=== PATIENT | male | born 1955 | race Caucasian/White ===

== ENCOUNTER 2022-02-28 11:15 | Emergency (ER) | payer MEDICARE, OTHER, SELFPAY ==
--- NOTE | 2022-02-28 13:17 | ED.URI ---
HPI - URI/Sore Throat General Chief Complaint: Chest Pain Stated Complaint: Chest Pain,SOB Time Seen by Provider: 02/28/22 13:17 Source: patient Mode of arrival: ambulatory Limitations: no limitations History of Present Illness HPI Narrative: 66-year-old male with no significant medical history presents with complaint of chest pain, shortness of breath that started around 1:00 a.m.. States that it woke him up from sleeping. Thought that it was heartburn took 2 Tylenol and went back to sleep. Denies nausea vomiting. No sweating , dizziness, fatigue. Feels short of breath while lying on stretcher in exam room. Pain is not reproducible with palpation. 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 States this is the hardest I have worked in years . All systems reviewed and negative except as noted above. Related Data Home Medications Medication Instructions Recorded Confirmed No Home Medications 02/28/22 02/28/22 Allergies Allergy/AdvReac Type Severity Reaction Status Date / Time No Known Allergies Allergy Unverified 02/28/22 13:11 Review of Systems Review of Systems: CONSTITUTIONAL: Denies fever, chills, or sweats. EYES: Denies visual changes, redness, or discharge. ENT: Denies rhinorrhea, congestion, sore throat, or otalgia. CARDIOVASCULAR: Reports chest pain and shortness of breath. RESPIRATORY: Denies cough or dyspnea. GASTROINTESTINAL: Denies abdominal pain, nausea, vomiting, or diarrhea. GENITOURINARY: Denies dysuria or hematuria. SKIN: Denies rash or itching. MUSCULOSKELETAL: Denies back pain, joint pain, or myalgia. NEUROLOGIC: Denies headache, numbness, or weakness. PSYCHIATRIC: Denies anxiety or depression. All other systems reviewed are negative, except as documented in HPI. PMFSH Comments At time of signature, agree with nursing past medical, surgical, social and family history. There is no relevant family history pertinent to the presenting complaint. Exam Narrative: GENERAL: This is a well-nourished, well-developed patient, in no apparent distress. HEAD: normocephalic, atraumatic. EYES: PERRL. Sclera clear/white. Vision is grossly intact. EARS: External ears normal NOSE: External nose normal NECK: Neck supple, non-tender without lymphadenopathy, masses or thyromegaly. CARDIOVASCULAR: irregular RESPIRATORY: Clear to auscultation. Breath sounds equal bilaterally. No wheezes, rales, or rhonchi. SKIN: warm, Dry, intact with no suspicious lesions or rash, good texture and turgor. NEURO: awake, alert, and oriented to person, place and time. There were no obvious focal neurologic abnormalities. EXTREMITIES: No joint tenderness, effusion, or edema noted. Course Course Level of Care: Express Care Visit Vital Signs Vital signs: reviewed Transfer Transfered to: [place] Transportation: [facility] Transfer rationale: new onset atrial fibrillation Accepting physician: Dr. Rossi MDM - URI/Sore Throat MDM Narrative Medical decision making narrative: EKG atrial fibrillation. No history for patient. Transfer to ER via ambulance. Vital signs stable. Complaint of chest pain and shortness of breath. No dizziness , nausea or diaphoresis. Patient is aware of diagnosis, understands and agrees to treatment plan. Anticipatory guidance given. Patient agrees to follow-up as directed and is aware of reasons to seek care at the emergency department. Portions of this record may have been created with voice recognition software Discharge Plan Discharge Clinical Impression: Atrial fibrillation Patient Disposition: Acute Care Hospital Condition: Stable Additional Instructions: go directly to [facility]. Prescriptions: No Action No Home Medications Follow-up/Referrals: Jennifer,Jurgen Patel MD [Primary Care Provider] - Time of Disposition: 13:30
--- NOTE | 2022-02-28 13:46 | PC.NURSE ---
1325-- pt states that he does not want to go by ems, since he is unsure if his insurance will cover, and risks explained to pt and told him that we would have him sign an ama form for ems refusal. he acknowlegded understanding.
--- NOTE | 2022-02-28 14:07 | PC.NURSE ---
1330- pt signed cobra sheet for transfer, and given the ama for ems form to sign, and pt states that he thought about it and will take ems transfer at this time. 1332- ems called per registration [id number]- ems here from across the street, report given to crew, copies of ekg and surveillance system monitor strips sent with pt to the er. pt stood from stretcher, and walked to ems stretcher without dizziness. pt loaded onto stretcher, and left in care of ems, stable condition.
--- NOTE | 2022-02-28 14:20 | ECG_ITS ---
Measurements Intervals [place] Rate: 79 P: [place]: 0 QRS: -4 QRSD: 92 T: 30 QT: 353 QTc: 405 Interpretive Statements ATRIAL FIBRILLATION INCOMPLETE RIGHT BUNDLE BRANCH BLOCK BASELINE ARTIFACT- I, III, AVL, V1 ABNORMAL ECG NO PREVIOUS ECG AVAILABLE FOR COMPARISON Electronically Signed On 02-28-2022 16:16:24 COPING MACHINE OPERATOR by David Garzon D.O.
== END 2022-02-28 13:31 | disposition short-term general hospital (02) ==
PROVIDERS: Emergency Provider Nurse Practitioner Family; PCP Internal Medicine
DX: I48.91 Unspecified atrial fibrillation (principal)
CPT/HCPCS: 93005; 99215; G0463

== ENCOUNTER 2022-02-28 14:03 | Emergency (ER) | payer MEDICARE, OTHER, SELFPAY ==
[2022-02-28] VITALS (18 sets, daily range): BP systolic 129–145; BP diastolic 91–111; PULSE 63–108; RESP 15–24; TEMP 37; O2SAT 97–98
--- NOTE | ~2022-02-28 | XR_ITS ---
XR chest 1V portable DATE: 02/28/2022 15:01 INDICATION: Atrial fibrillation TECHNIQUE: Portable upright AP chest on 02/28/2022 at 1447 hours COMPARISON: None FINDINGS: Normal heart size. There is aortic unfolding. No hilar or mediastinal enlargement. No pulmonary infiltrate or consolidation, pleural effusion or pulmonary vascular congestion or pneumo thorax. IMPRESSION: No active cardiopulmonary disease Reviewed, dictated and finalized at location A. DYEING MACHINE LOADER
[2022-02-28 14:57] LABS: Basophils Percent Auto 0.4 % (0.2-1.2); Eosinophils Absolute Auto 0.1 K/mm3 (0-0.3); Eosinophils Percent Auto 0.7 % (0-4.4); Hematocrit 47.2 % (42.0-52.0); Hemoglobin 15.8 g/dL (14.0-18.0); Immature Granulocyte Absolute 0.03 K/mm3 (0.00-0.031); Immature Granulocyte Percent A 0.3 % (0-0.5); Lymphocytes Absolute Auto 0.97 K/mm3 (0.9-3.2); Lymphocytes Percent Auto 9.8 % (18.3-44.2); Mean Corpuscular HGB Conc 33.5 g/dl (32-36); Mean Corpuscular Hemoglobin 33.8 pg (26-34); Mean Corpuscular Volume 100.9 fl (80-100); Mean Platelet Volume 9.1 fl (7.4-10.4); Monocytes Absolute Auto 1.2 K/mm3 (0.1-0.6); Monocytes Percent Auto 11.9 % (2.6-8.5); Neutrophils Absolute Auto 7.6 K/mm3 (1.3-6.7); Neutrophils Percent Auto 76.9 % (45.5-73.1); Platelet Count Result 273 k/mm3 (150-375); Red Blood Count 4.68 M/mm3 (4.6-6.20); Red Cell Distribution Width 13.2 % (11.5-14.5); White Blood Count 9.9 K/mm3 (4.5-10.0)
--- NOTE | 2022-02-28 15:02 | ECG_ITS ---
Measurements Intervals [place] Rate: 85 P: [place]: 0 QRS: -26 QRSD: 88 T: 49 QT: 351 QTc: 418 Interpretive Statements ATRIAL FIBRILLATION INCOMPLETE RIGHT BUNDLE BRANCH BLOCK DELAYED PRECORDIAL R/S TRANSITION INFERIOR INFARCT, AGE INDETERMINATE ABNORMAL ECG COMPARED TO ECG 02/28/2022 13:21:38 NO SIGNIFICANT CHANGES Electronically Signed On 03-01-2022 7:43:19 DRAWER IN by David Garzon D.O.
[2022-02-28 15:09] LABS: Alanine Aminotransferase 43 U/L (6-50); Albumin Level 4.5 g/dL (3.5-5.1); Alkaline Phosphatase 111 U/L (38-126); Anion Gap 11 mmol/L (8-16); Aspartate Amino Transferase 43 U/L (17-59); Bilirubin,Total 1.2 mg/dL (0.2-1.3); Blood Urea Nitrogen 14 mg/dL (9-20); Carbon Dioxide 27 mmol/L (22-30); Chloride 103 mmol/L (98-107); Estimated CRCL calculation 98 ml/min; Estimated Glomerular Filt Rate > 60; Glucose 107 mg/dL (65-110); Potassium 4.4 mmol/L (3.4-5.0); Prothrombin Time 12.5 Seconds (11.1-14.7); Sodium 141 mmol/L (137-145)
[2022-02-28 15:10] LABS: Partial Thromboplastin Time 31.2 SECONDS (22.3-36.8)
[2022-02-28 15:21] LABS: NT Pro B Type Natriuretic Pept 609 pg/mL (5-100); Troponin I < 0.012 ng/mL (0.000-0.034)
[2022-02-28 15:45] LABS: Thyroid Stimulating Hormone Reflex 0.863 uIU/mL (0.465-4.68)
--- NOTE | 2022-02-28 15:50 | ED.CHESTPAIN ---
HPI - Chest Pain General Chief Complaint: Chest Pain Stated Complaint: new onset afib Time Seen by Provider: 02/28/22 14:05 Source: patient and EMS Mode of arrival: EMS Limitations: no limitations History of Present Illness HPI narrative: 66 years old white male presented to the ED by ambulance because of chest pain with breathing, EKG showing A. fib with normal ventricular response at the urgent care then patient referred to our emergency room for further evaluation. Patient reports 1 spot at the sternum which is tender and sharp when he takes deep breath, resolved with exhalation, worse with inhalation started this morning. Yesterday patient had heavy work-up with lifting pushing for at least 8 hours which usually does not do that. Patient does not take medicine at home, no family history of coronary artery disease, patient does not smoke, drinks occasionally, uses marijuana occasionally. Currently patient denying any symptoms. No history of atrial fibrillation patient Related Data Allergies Allergy/AdvReac Type Severity Reaction Status Date / Time No Known Allergies Allergy Unverified 02/28/22 14:13 Review of Systems Review of Systems: All systems reviewed & are unremarkable except as noted in HPI and below Exam Narrative: General appearance: Well-developed, well-nourished not in any pain or distress Skin: Normal color Head: Normocephalic, nontraumatic Eyes: Clear conjunctiva ENT: Oropharynx normal, ears normal, nose normal Neck: Supple, nontender Chest and respiratory: Airway patent, no respiratory distress, no accessory muscle use Heart: irRegular rate/rhythm Abdomen: Soft, nontender, no organomegaly, quiet bowel sounds Vascular: Normal peripheral pulses, normal capillary refill. Musculoskeletal: Normal range of motion, nontender back Neurologic: Alert and oriented ?3, LEARNING CENTER INSTRUCTOR is normal as tested, no gross motor deficit Course Course Emergency Course: Upon arrival to the emergency room patient was asymptomatic although his monitor showing A. fib with controlled ventricular response. Musculoskeletal pain/chest wall pain is my concern. Patient had extensive physical work-up yesterday lasted for 8 hours with a lot of lifting and pushing and pulling which high likely the underlying cause of his pain. Patient does not have any coronary artery risk factors. I plan to discharge him to see Dr. Cardoza in a.m. for follow-up. CHADS2 score is 1, patient will be okay on aspirin as antiplatelet at this time. The risk of stroke is less likely. Consultations Consultation #1: Dr. Garzon Outpatient follow-up in a.m. Date: 02/28/22 Time: 16:03 Vital Signs Vital signs: Vital Signs Temperature 37.0 C 02/28/22 14:09 Pulse Rate 63 02/28/22 14:09 Respiratory Rate 18 02/28/22 14:09 Blood Pressure 145/99 H 02/28/22 14:09 Pulse Oximetry 98 02/28/22 14:09 Oxygen Delivery Room Air 02/28/22 14:09 Temperature 37.0 C 02/28/22 14:09 Pulse Rate 87 02/28/22 14:25 Respiratory Rate 16 02/28/22 14:25 Blood Pressure 133/111 H 02/28/22 14:25 Pulse Oximetry 97 02/28/22 14:25 Oxygen Delivery Room Air 02/28/22 14:09 MDM - Chest Pain Differential Diagnosis Differential diagnosis: Likely atypical chest pain, costochondritis and other (A. fib with controlled ventricular response) Lab Data Result diagrams: 02/28/22 14:51 02/28/22 14:51 Labs: Lab Results 02/28/22 02/28/22 02/28/22 Range/Units 14:51 14:51 14:51 WBC 9.9 (4.5-10.0) K/mm3 RBC 4.68 (4.6-6.20) M/mm3 Hgb 15.8 (14.0-18.0) g/dL Hct 47.2 (42.0-52.0) % MCV 100.9 H (80-100) fl MCH 33.8 (26-34) pg MCHC 33.5
== END 2022-02-28 18:21 | disposition home or self-care (01) ==
PROVIDERS: Emergency Provider Emergency Medicine; PCP Internal Medicine
DX: I48.91 Unspecified atrial fibrillation (principal); R07.89 Other chest pain; I45.10 Unspecified right bundle-branch block; R94.31 Abnormal electrocardiogram [ECG] [EKG]
CPT/HCPCS: 36415; 71045; 80053; 83880; 84443; 84484; 85025; 85610; 85730; 93005; 99284

== ENCOUNTER 2023-08-17 13:08 | Emergency (ER) | payer MEDICARE, SELFPAY ==
[2023-08-17 13:32] VITALS: BP 150/90; PULSE 76; RESP 16; TEMP 36.8; O2SAT 97
--- NOTE | 2023-08-17 13:39 | ED.WOUNDLAC ---
HPI - Wound/Laceration General Chief Complaint: Wound/Laceration Stated Complaint: head lac Time Seen by Provider: 08/17/23 13:19 Source: patient Mode of arrival: ambulatory Limitations: no limitations History of Present Illness HPI narrative: Patient is a 67-year-old male who presents the ED with report of a laceration to scalp. Patient reports he hit his head against an angle iron just prior to arrival and sustained a laceration to his right superior scalp. Bleeding controlled. Patient is on Eliquis d/t hx of afib. Denied LOC. Denies any other injuries. Tetanus up-to-date. Related Data Allergies Allergy/AdvReac Type Severity Reaction Status Date / Time No Known Allergies Allergy Unverified 02/28/22 14:13 Review of Systems Review of Systems: CONSTITUTIONAL: Denies fever, chills, or sweats. SKIN: See HPI MUSCULOSKELETAL: Denies back pain, neck pain. NEUROLOGIC: See HPI All systems reviewed & are unremarkable except as noted in HPI and below PMFSH Past Medical History Medical History Atrial fibrillation Exam Narrative: GENERAL: Well appearing, well-nourished, non-toxic, in no acute distress. HEAD: Normocephalic. Approx 6cm linear laceration to R parietal scalp, no active bleeding. Sensation intact. EYES: PERRL/EOMI, conjunctiva clear. RESPIRATORY: Airway patent, respirations nonlabored. CARDIOVASCULAR: Regular rate and rhythm MUSCULOSKELETAL: Moves all extremities. No gross deformities. SKIN: Warm, dry, normal color. NEURO: A&O X3. Speech clear. Cranial nerves II-XII grossly intact. Steady gait. No ataxic movements. No focal deficits. PSYCHIATRIC: Appropriate mood and affect. Normal interaction. Course Vital Signs Vital signs: Vital Signs Temperature 98.3 F 08/17/23 13:32 Pulse Rate 76 08/17/23 13:32 Respiratory Rate 16 08/17/23 13:32 Blood Pressure 150/90 H 08/17/23 13:32 Pulse Oximetry 97 08/17/23 13:32 Temperature 98.3 F 08/17/23 13:32 Pulse Rate 76 08/17/23 13:32 Respiratory Rate 16 08/17/23 13:32 Blood Pressure 150/90 H 08/17/23 13:32 Pulse Oximetry 97 08/17/23 13:32 Procedures Laceration Laceration 1: Date: 08/17/23 Time: 14:30 Site: scalp Side (If applicable): right Size (cm): 7 Description: linear Depth: simple, single layer Local Anesthetic: other anesthetic (topical LET gel) Pre-repair: wound explored and irrigated ====== Skin Level ====== Skin layer closed with: camilla (#9) ====== Subcutaneous Layer ====== ====== Muscle Layer ====== ====== Tendon Layer ====== MDM - Wound/Laceration MDM Narrative Medical decision making narrative: Patient presented to ED with head injury, laceration to scalp. Patient is on Eliquis due to history of AFib. He is neurologically intact upon my evaluation. I discussed performing a CT scan of the brain to evaluate for any intracranial abnormalities, however patient declined. He states he does not feel this is necessary. Refused CT scan. I discussed the reasoning behind obtaining CT scan, risks of refusing, patient voiced understanding and is adamant that he does not want a CT scan. LET gel was applied to laceration. Lac stapled without complications. Tetanus UTD. Discussed wound care instructions and reasons to return. Patient discharged in stable condition. Ambulatory with a steady gait. Medical Records Attestation: I reviewed the patient's medical records. Discharge Plan Discharge Clinical Impression: Closed head injury Qualifiers: Encounter type: initial encounter Qualified Code(s): S09.90XA - Unspecified injury of head, initial encounter Laceration of scalp Qualifiers: Encounter type: initial encounter Qualified Code(s): S01.01XA - Laceration without foreign body of scalp, initial encounter Patient Disposition: Home, Self-Care Condit
[2023-08-17] MEDS: LIDOCAINE, EPINEPHRINE, TETRACAINE VISCOUS SOLN 3 ML TOPICAL (14:01)
[2023-08-17 14:45] VITALS: BP 142/80; PULSE 78; RESP 16; TEMP 36.6; O2SAT 100
== END 2023-08-17 14:46 | disposition home or self-care (01) ==
PROVIDERS: Emergency Provider Physician Assistant; PCP Internal Medicine
DX: S01.01XA Laceration without foreign body of scalp, initial encounter (principal); I48.91 Unspecified atrial fibrillation; Z79.01 Long term (current) use of anticoagulants; Z79.82 Long term (current) use of aspirin; W22.8XXA Striking against or struck by other objects, initial encounter
CPT/HCPCS: 12004; 99282